=== PATIENT | male | born 1980 | race Hispanic/Latino ===

== ENCOUNTER 2017-07-19 08:30 | Emergency (ER) | payer MEDICAID ==
[2017-07-19 08:31] VITALS: BMI 25.8
--- NOTE | 2017-07-19 09:15 | C.PDOC ---
History Of Present Illness 36 year old male presents to the ED seeking medicine refill of clonazepam and zolpidem because "they were stolen." Patient states he was a psych patient in [place] two weeks ago and had an appointment scheduled in [facility], [place] for 07/09/2017 but missed his appointment. He requests medications to last until six days. Patient denies any physical complaints, suicidal, or homicidal ideations. Time Seen by Provider: 07/19/17 09:13 Chief Complaint (Nursing): Med Refill History Per: Patient History/Exam Limitations: no limitations Severity: None Pain Scale Rating Of: 0 Reports Recently: Seen In ED, Treated By A Physician, Hospitalized Recent travel outside of the [place]: No Past Medical History Reviewed: Historical Data, Nursing Documentation, Vital Signs Vital Signs: Last Vital Signs Temp 98 F 07/19/17 09:38 Pulse 80 07/19/17 09:38 Resp 16 07/19/17 09:38 BP 130/70 07/19/17 09:38 Pulse Ox 97 07/19/17 10:11 - Medical History PMH: Anxiety, Asthma, Bipolar Disorder, Bronchitis, Depression, Sexually Transmitted Disease (Herpes) Surgical History: Tonsillectomy (and adnoids) - [facility] Procedures APPLICATION OF SPLINT (02/20/14) CLOSURE SKIN & SUBCUTANEOUS NEC (09/10/05) DPT ADMINISTRATION (07/11/14) INJECT/INFUSE NEC (02/20/14) TETANUS TOXOID ADMINIST (10/21/13) TONSILLECTOMY/ADENOIDEC (02/03/01) Family History: States: Other Other Family History: non-contributory - Social History Hx Tobacco Use: Yes (30 per day) Hx Alcohol Use: Yes Hx Substance Use: Yes - Immunization History Hx Tetanus Toxoid Vaccination: Yes Review Of Systems Constitutional: Negative for: Fever Cardiovascular: Negative for: Chest Pain Respiratory: Negative for: Shortness of Breath Gastrointestinal: Negative for: Nausea, Vomiting Psych: Negative for: Suicidal ideation Physical Exam - Physical Exam Appears: Non-toxic, No Acute Distress Skin: Warm, Dry Head: Atraumatic Eye(s): bilateral: Normal Inspection Oral Mucosa: Moist Neck: Supple Chest: Symmetrical, No Deformity Cardiovascular: Rhythm Regular Respiratory: Normal Breath Sounds, No Rales, No Rhonchi, No Wheezing Extremity: Normal ROM, No Tenderness Neurological/Psych: Oriented x3, Normal Speech, Normal Cognition Gait: Steady ED Course And Treatment O2 Sat by Pulse Oximetry: 97 (room air ) Disposition - Disposition Referrals: [facility] [Outside] [facility] [Outside] [facility] [Outside] Disposition: HOME/ ROUTINE Disposition Time: 09:36 Condition: GOOD Additional Instructions: Please follow up with your doctor. Return to the ER for any worsening symptoms or for any other concerns. Forms: General Discharge Instructions, [facility] (Danish) - Clinical Impression Clinical Impression: Medicine refill - Scribe Statement The provider has reviewed the documentation as recorded by the Scribe Gloria Newton All medical record entries made by the Scribe were at my direction and personally dictated by me. I have reviewed the chart and agree that the record accurately reflects my personal performance of the history, physical exam, medical decision making, and the department course for this patient. I have also personally directed, reviewed, and agree with the discharge instructions and disposition.
[2017-07-19 09:39] VITALS: BP 130/70; PULSE 80; RESP 16; TEMP 98
[2017-07-19 09:42] VITALS: O2SAT 97
== END 2017-07-19 09:38 | disposition home or self-care (01) ==
LOC: C.ER 08:30
DX: Z76.0 Encounter for issue of repeat prescription (principal)